=== PATIENT | male | born 1990 | race Caucasian/White ===

== ENCOUNTER 2025-05-31 12:28 | Inpatient (IN) | payer SELFPAY ==
[2025-05-31] MEDS ORDERED: Sodium Chloride 0.9% 10 ML Syringe FLUSH PRN (12:33)
[2025-05-31] MEDS: diphenhydrAMINE 50 MG/ML SDV IVPUSH ONE (12:52)
[2025-05-31] MEDS: methylPREDNISolone Sodium Succinate 125 MG/2 ML SDV IVPUSH ONE (12:52)
[2025-05-31 13:17] LABS: BASOPHILS ABSOLUTE AUTO 0.0 K/mm3 (0.0-0.2); BASOPHILS PERCENT AUTO 0.1 % (0.0-1.0); EOSINOPHILS ABSOLUTE AUTO 0.2 K/mm3 (0.0-0.4); EOSINOPHILS PERCENT AUTO 1.5 % (0.0-6.0); IMMATURE GRAN ABSOLUTE AUTO 0.06 K/mm3 (0.00-0.05); IMMATURE GRAN PERCENT AUTO 0.4 % (0.0-0.4); LYMPHOCYTES ABSOLUTE AUTO 1.3 K/mm3 (1.0-4.8); LYMPHOCYTES PERCENT AUTO 9.1 % (24.0-44.0); MEAN PLATELET VOLUME 10.9 fl (9.4-12.4); MONOCYTES ABSOLUTE AUTO 0.9 K/mm3 (0.0-0.8); MONOCYTES PERCENT AUTO 6.5 % (0.0-8.0); NEUTROPHILS ABSOLUTE AUTO 11.8 K/mm3 (1.8-7.7); NEUTROPHILS PERCENT AUTO 82.4 % (41.0-71.0); NRBC ABSOLUTE 0.00 (0.00-0.02); NRBC PERCENT 0.0 % (0.0-0.2); PLATELET COUNT,PLT 186 K/mm3 (150-400); RED BLOOD CELL COUNT 5.36 M/mm3 (4.52-5.90); WHITE BLOOD CELL COUNT,WBC 14.35 K/mm3 (3.9-11.3)
[2025-05-31 13:43] LABS: A/G RATIO 0.9 (1-2); ALANINE AMINOTRANSFERASE,ALT 51.0 U/L (16-63); ASPARTATE AMNIOTRANSFERASE,AST 37.0 U/L (15-37); BILIRUBIN TOTAL 0.7 mg/dL (0.2-1.0); BLOOD UREA NITROGEN,BUN 12.0 mg/dL (7-18); CARBON DIOXIDE,CO2 26.0 mEq/L (21-32); CHLORIDE,CL 98.0 mEq/L (98-107); CREATININE 1.1 mg/dL (0.7-1.3); EST CRCL DRUG DOSING (CG) 94.1 mL/min; ESTIMATED GFR 90.0 mL/min (>60); GLUCOSE RANDOM 142.0 mg/dL (70-99); POTASSIUM,K 4.5 mEq/L (3.5-5.1); PROTEIN TOTAL,TP 6.3 g/dl (6.4-8.2); SODIUM,NA 134.0 mEq/L (136-145)
[2025-05-31] MEDS: Lactated Ringers 1,000 ML IV ONE (13:58)
[2025-05-31] MEDS: Ampicillin/Sulbactam Na 3 GM in Sodium Chloride 0.9% 100 ML IV SCH (14:50)
[2025-05-31] MEDS ORDERED: Sennosides/Docusate Sodium 50-8.6 MG Tab PO PRN (15:50)
[2025-05-31] MEDS ORDERED: Ondansetron 4 MG Tab.DIS PO PRN (15:50)
[2025-05-31] MEDS ORDERED: Naloxone 0.4 MG/ML SDV IVPUSH PRN (15:50)
[2025-05-31] MEDS: Magnesium Sulfat/D5W 1GM/100ML 1 GM in Premix Bag 1 BAG IV ONE (16:23)
[2025-05-31] MEDS: Ketorolac 30 MG/ML SDV IVPUSH PRN (16:24)
[2025-05-31] MEDS: Triamcinolone Acetonide 0.1% Crm 15 GM Tube TOP SCH (18:33)
[2025-05-31] MEDS: Mineral Oil/White Petrolatum Crm 113 GM Jar TOP SCH (21:42)
[2025-05-31] MEDS: diphenhydrAMINE/Zinc Acetate 2% Crm 28.4 GM Tube TOP SCH (21:42)
[2025-06-01] MEDS ORDERED: Mineral Oil/White Petrolatum Crm 113 GM Jar TOP SCH (09:00)
[2025-06-01] MEDS ORDERED: diphenhydrAMINE/Zinc Acetate 2% Crm 28.4 GM Tube TOP SCH (09:00)
== END 2025-05-31 22:30 | disposition left against medical advice (07) | DRG 607 ==
LOC: EDSEX 12:28 → JD.ED 12:28 → JD.MS 14:01
PROVIDERS: ADMIT Student in an Organized Health Care Education/Training Program; ATTEND Student in an Organized Health Care Education/Training Program
DX: L56.0 Drug phototoxic response (principal); F17.210 Nicotine dependence, cigarettes, uncomplicated
CPT/HCPCS: 36415; 71045; 71045-26; 80053; 83735; 85025; 85652; 86140; 87040; 93005; 96374; 96375; 99234; 99284-25; A9270-GY; J0295; J1200; J1308; J1885; J2919; J3475; J7120

== ENCOUNTER 2025-06-01 09:07 | Emergency (ER) | payer SELFPAY ==
[2025-06-01] MEDS: Ketorolac 60 MG/2 ML SDV IM ONE (09:58)
== END 2025-06-01 10:55 | disposition home or self-care (01) ==
LOC: JD.ED 09:07
DX: L25.3 Unspecified contact dermatitis due to other chemical products (principal)
CPT/HCPCS: 96372; 99283; A9270; J1885; J7512